=== PATIENT | male | born 1955 | race Caucasian/White ===

== ENCOUNTER 2021-09-05 08:38 | Day surgery (SDC) | payer MEDICARE, BC ==
[~2021-09-05] VITALS: Ht 172.7 cm; Wt 88.9 kg
[2021-09-05 08:58] VITALS: BP 142/78
[2021-09-05 09:00] VITALS: BP 135/79
[2021-09-05] MEDS ORDERED: LIDOcaine 1% 30ml preserv. free vial IJ STA (09:04)
[2021-09-05] MEDS ORDERED: albumin 25% 100mL bottle x 1 IV PRN (09:10)
[2021-09-05 09:15] VITALS: BP 133/78
[2021-09-05 09:30] VITALS: BP 130/72
[2021-09-05] MEDS ORDERED: ATEN-169 PO (09:33)
[2021-09-05] MEDS ORDERED: METO-384 PO (09:37)
[2021-09-05] MEDS ORDERED: ASPI81TA52 PO (09:48)
[2021-09-05] MEDS ORDERED: HYDR25TA5 PO (09:48)
[2021-09-05] MEDS ORDERED: METH20TA PO (09:50)
[2021-09-05] MEDS ORDERED: BUPR300T53 PO (09:52)
[2021-09-05] MEDS ORDERED: TRIAMCINOLON TOP (09:54)
[2021-09-05] MEDS ORDERED: Potassium (09:55)
[2021-09-05] MEDS ORDERED: FURO-149 PO (09:55)
[2021-09-05] MEDS ORDERED: SPIR25TA5 PO (09:56)
[2021-09-05 10:25] VITALS: BP 133/82
[2021-09-05 10:43] LABS: LYMPHOCYTES,BODY FLUID 76 %; MONOCYTES,BODY FLUID 20 %; NEUTROPHILS,BODY FLUID 4 %
[2021-09-05 10:44] LABS: BF WBC COUNT 330 /CU MM (0-1000); BFAPPEAR HAZY; BFCOLOR YELLOW; BFVOLUME 50 ML
[2021-09-05 10:45] LABS: BF MESOTHELIAL CELLS MODERATE; BF RBC COUNT 2200 /CU MM
[2021-09-05 10:51] LABS: GLUCOSE,BODY FLUID 129 MG/DL; LDH,BODY FLUID 71 U/L
[2021-09-05 12:20] LABS: TOTAL PROTEIN,BODY FLUID < 2.0 G/DL
== END 2021-09-05 10:25 | disposition home or self-care (01) ==
LOC: SSTAY O 08:38
PROVIDERS: ATTEND Preventive Medicine Aerospace Medicine
DX: R18.8 Other ascites (principal); G62.9 Polyneuropathy, unspecified; M19.90 Unspecified osteoarthritis, unspecified site; Z86.73 Personal history of transient ischemic attack (TIA), and cerebral infarction without residual deficits; Z98.890 Other specified postprocedural states; Z72.89 Other problems related to lifestyle; Z79.82 Long term (current) use of aspirin; Z79.899 Other long term (current) drug therapy
CPT/HCPCS: 49083; 82945; 83615; 84157; 89051